=== PATIENT | male | born 1965 | race African-American/Black ===

== ENCOUNTER 2017-01-08 06:22 | Emergency (ER) | payer OTHER ==
[~2017-01-08] VITALS: Ht 182.9 cm; Wt 87.5 kg
[2017-01-08] MEDS ORDERED: TRUVADA 200 MG1 EAC1 ORAL (06:31)
[2017-01-08] MEDS ORDERED: LISINOPRIL5 MG ORAL (06:31)
--- NOTE | 2017-01-08 06:42 | Emergency Room Report ---
History of Present Illness General Chief Complaint: General Complaint Source: Patient Present Illness HPI Patient is a 51-year-old male presented after increased left-sided numbness weakness. Patient had the sudden onset of symptoms approximately 45 minutes prior to arrival. The patient reports having been taking Truvada for approximately 6 months. He denies prior history of diabetes. He reports having taken Viagra last night. He denies any changes in speech. Allergies: Coded Allergies: No Known Allergies (Unverified , 01/08/17) Patient History Past Medical History: see triage record Reviewed Nursing Documentation: PMH: Agreed, PSxH: Agreed Nursing Documentation-PMH Hx Hypertension: Yes Review of Systems All Other Systems: negative except mentioned in HPI Physical Exam Vital Signs Date Time Temp Pulse Resp B/P Pulse Ox O2 Delivery O2 Flow Rate FiO2 01/08/17 06:25 98.2 64 18 141/91 99 Room Air Sp02 EP Interpretation: reviewed, normal General Appearance: normal inspection, well appearing, no apparent distress, alert, GCS 15 Head: atraumatic ENT: normal ENT inspection, hearing grossly normal, normal voice Neck: normal inspection, full range of motion, supple, no bony tend Respiratory: normal inspection, lungs clear, normal breath sounds, no respiratory distress, no retraction, no wheezing Cardiovascular #1: regular rate, rhythm, no edema Gastrointestinal: normal inspection, normal bowel sounds, non tender, soft, no guarding, no hernia Genitourinary: no CVA tenderness Musculoskeletal: normal inspection, back normal, normal range of motion Neurologic: normal inspection, alert, oriented x3, responsive, shoe maker III-XII nml as tested, motor strength/tone normal, speech normal, other - slight passpointing with left upper extremity, oriented Psychiatric: normal inspection, judgement/insight normal, mood/affect normal Skin: normal inspection, normal color, no rash Medical Decision Making Diagnostic Impression: Primary Impression: Acute left-sided weakness Additional Impression: TIA (transient ischemic attack) ER Course Patient presented for left-sided numbness and weakness. Differential diagnosis included was not limited to CVA, hemorrhagic stroke, multiple sclerosis, hypoglycemia among others. Because of complexity of patient's case laboratory testing and imaging studies were ordered. CT of the head was ordered due to patient's acute onset neurologic symptoms. The patient did not appear to have any severe neurologic deficit requiring thrombolytic.The CT the head read by radiology showed no evidence of acute hemorrhage or stroke. The patient was noted to have adequate blood sugar. I laboratory testing showed minimal elevation of creatinine. Patient was given aspirin by mouth. The patient's niH Stroke score was 2. Patient was noted to have some passpointing with left upper extremity and numbness only.The patient was discussed with Dr. Rose who agreed to accept the patient in transfer.The patient appears stable for transfer at this time. Labs Test 01/08/17 07:14 White Blood Count 5.5 K/UL (4.8-10.8) Red Blood Count 6.09 M/UL (4.70-6.10) Hemoglobin 16.0 G/DL (14.2-18.0) Hematocrit 51.0 % (42.0-52.0) Mean Corpuscular Volume 84 FL (80-99) Mean Corpuscular Hemoglobin 26.2 PG (27.0-31.0) Mean Corpuscular Hemoglobin Concent 31.3 G/DL (32.0-36.0) Red Cell Distribution Width 14.7 % (11.6-14.8) Platelet Count 198 K/UL (150-450) Mean Platelet Volume 9.8 FL (6.5-10.1) Neutrophils (%) (Auto) % (45.0-75.0) Lymphocytes (%) (Auto) % (20.0-45.0) Monocytes (%) (Auto) % (1.0-10.0) Eosinophils (%) (Auto) % (0.0-3.0) Basophils (%) (Auto) % (0.0-2.0) Differential Total Cells Counted 100 Neutrophils % (Manual) 22 % (45-75) Lymphocytes % (Manual) 68 % (20-45) Monocytes % (Manual) 10 % (1-10) Eosinophils % (Manual) 0 % (0-3) Basophils % (Manual) 0 % (0-2) Band Neutrophils 0 % (0-8) Platelet Estimate Adequate Platelet Morphology Normal Hypochromasia 1+ Prothrombin Time 11.0 SEC (9.30-11.50) Prothromb Time International Ratio 1.1 (0.9-1.1) Activated Partial Thromboplast Time 27 SEC (23-33) Sodium Level 138 mEQ/L (135-145) Potassium Level 4.8 mEQ/L (3.4-4.9) Chloride Level 97 mEQ/L (98-107) Carbon Dioxide Level 27 mEQ/L (20-30) Anion Gap 14 (5-15) Blood Urea Nitrogen 13 mg/dL (7-23) Creatinine 1.4 mg/dL (0.7-1.2) Estimat Glomerular Filtration Rate > 60 mL/min (>60) Glucose Level 91 mg/dL (74-106) Calcium Level 9.3 mg/dL (8.6-10.2) Total Bilirubin 0.4 mg/dL (0.0-1.2) Aspartate Amino Transf (AST/SGOT) 29 U/L (5-40) Alanine Aminotransferase (ALT/SGPT) 24 U/L (3-41) Alkaline Phosphatase 38 U/L (40-129) Total Protein 7.9 g/dL (6.6-8.7) Albumin 4.5 g/dL (3.5-5.2) Globulin 3.4 g/dL Albumin/Globulin Ratio 1.3 (1.0-2.7) Triglycerides Level 102 mg/dL (< 150) Cholesterol Level 198 mg/dL (< 200) LDL Cholesterol 120 mg/dL (60-99) HDL Cholesterol 58 mg/dL (> 60) Cholesterol/HDL Ratio 3.4 (3.3-4.4) EKG Diagnostic Results Rate: normal - 57 Rhythm: NSR ST Segments: no acute changes Last Vital Signs Date Time Temp Pulse Resp B/P Pulse Ox O2 Delivery O2 Flow Rate FiO2 01/08/17 06:25 98.2 64 18 141/91 99 Room Air Status: unchanged [facility] Condition: Stable Satish Valenzuela Jan 08, 2017 06:42
[2017-01-08 07:10] VITALS: BP 137/93
[2017-01-08 07:33] LABS: MEAN CORPUSCULAR HEMOGLOBIN 26.2 PG (27.0-31.0); MEAN CORPUSCULAR HGB CONC 31.3 G/DL (32.0-36.0); MEAN CORPUSCULAR VOLUME 84 FL (80-99); MEAN PLATELET VOLUME 9.8 FL (6.5-10.1); PLATELET COUNT 198 K/UL (150-450); RED BLOOD COUNT 6.09 M/UL (4.70-6.10); RED CELL DISTRIBUTION WIDTH 14.7 % (11.6-14.8); WHITE BLOOD COUNT 5.5 K/UL (4.8-10.8)
[2017-01-08 07:43] LABS: INR 1.1 (0.9-1.1)
[2017-01-08 07:45] LABS: ALANINE AMINOTRANSFERASE 24 U/L (3-41); ALBUMIN/GLOBULIN RATIO 1.3 (1.0-2.7); ANION GAP 14 (5-15); ASPARTATE AMINO TRANSFERASE 29 U/L (5-40); CALCIUM 9.3 mg/dL (8.6-10.2); CARBON DIOXIDE 27 mEQ/L (20-30); CHLORIDE 97 mEQ/L (98-107); CHOLESTEROL 198 mg/dL (< 200); CHOLESTEROL/HDL RATIO 3.4 (3.3-4.4); CREATININE 1.4 mg/dL (0.7-1.2); GLOMERULAR FILTRATION RATE > 60 mL/min (>60); HEMOLYSIS 45; LDL CHOLESTEROL (CALC.) 120 mg/dL (60-99); POTASSIUM 4.8 mEQ/L (3.4-4.9); SODIUM 138 mEQ/L (135-145); TOTAL PROTEIN 7.9 g/dL (6.6-8.7)
[2017-01-08 08:18] LABS: BAND NEUTROPHILS % (MANUAL) 0 % (0-8); BASOPHILS % (MANUAL) 0 % (0-2); EOSINOPHILS % (MANUAL) 0 % (0-3); LYMPHOCYTES % (MANUAL) 68 % (20-45); NEUTROPHILS % (MANUAL) 22 % (45-75); PLATELET ESTIMATE ADEQUATE; PLATELET MORPHOLOGY NORMAL; TOTAL CELLS COUNTED 100
[2017-01-08 08:19] LABS: HYPOCHROMASIA 1+
--- NOTE | 2017-01-08 08:24 | Diagnostic Imaging Report ---
Indications: Left-sided weakness Technique: Continuous helical CT imaging of the brain was performed with automatic exposure control on a Siemens sensation [address] scanner. Axial and coronal images were reconstructed at 5 mm slice thickness and interval. CTDI volume(s): 70 mGy Total DLP: 1537 mGy-cm Findings: Comparison: None. Intracranial anatomy is unremarkable. No evidence of mass or hemorrhage, other attenuation abnormality, mass effect, midline shift, hydrocephalus or increased intracranial pressure. Bone window images are unremarkable. Polypoid soft tissue density left sphenoid sinus. Remainder visualized paranasal sinuses and mastoid air cells are clear. IMPRESSION: Left sphenoid sinus polyp versus retention cyst Otherwise negative noncontrast CT scan of the brain 3 Early/subtle acute abnormalities may be missed, however. If clinically indicated, MRI of the brain without and with gadolinium may be of benefit in further evaluation. Written preliminary report placed in PACS 01/08/[address] scanner at [facility] is accredited by the [employer] and the scans are performed using protocols designed to limit radiation exposure to as low as reasonably achievable to attain images of sufficient resolution adequate for diagnostic evaluation.
[2017-01-08 08:44] LABS: TROPONIN I < 0.30 ng/mL (<=0.30)
[2017-01-08 09:27] LABS: APPEARANCE,URINE CLEAR; KETONES,URINE NEGATIVE (NEGATIVE); LEUKOCYTE ESTERASE ,URINE NEGATIVE (NEGATIVE); NITRITE,URINE NEGATIVE (NEGATIVE); PH,URINE 6 (4.5-8.0); PROTEIN,URINE NEGATIVE (NEGATIVE); UROBILINOGEN,URINE NORMAL MG/DL (0.0-1.0)
[2017-01-08 10:33] VITALS: BP 130/57
--- NOTE | 2017-01-08 10:59 | Cardiology Report ---
APPROVED REPORT EKG Measurement Heart [id number] Sinus bradycardia Possible Inferior infarct, age undetermined Abnormal ECG
[2017-01-09 12:53] LABS: OTHERS PATHOLOGIST COMMENT
== END 2017-01-08 10:38 | disposition short-term general hospital (02) ==
LOC: EMR 07:34
DX: G45.9 Transient cerebral ischemic attack, unspecified (principal); R53.1 Weakness; I10 Essential (primary) hypertension
CPT/HCPCS: 36415; 70450; 80053; 80061; 80300; 81003; 82962; 84484; 85007; 85025; 85610; 85730; 93005; 99285

== ENCOUNTER 2018-09-14 10:01 | Emergency (ER) | payer OTHER ==
[~2018-09-14] VITALS: Ht 182.9 cm; Wt 86.2 kg
[~2018-09-14 10:01] MED LIST: LISINOPRIL5 MG ORAL; TRUVADA 200 MG1 EAC1 ORAL
[2018-09-14 10:52] LABS: ANION GAP 8 mmol/L (5-15); BLOOD UREA NITROGEN 16 mg/dL (7-18); CALCIUM 9.1 MG/DL (8.5-10.1); CARBON DIOXIDE 27 MMOL/L (21-32); CHLORIDE 105 MMOL/L (98-107); CREATININE 1.3 MG/DL (0.55-1.30); POTASSIUM 4.3 MMOL/L (3.5-5.1); SODIUM 140 MMOL/L (136-145)
[2018-09-14 10:57] LABS: ALANINE AMINOTRANSFERASE 31 U/L (12-78); ALBUMIN 3.7 G/DL (3.4-5.0); ALBUMIN/GLOBULIN RATIO 0.8 (1.0-2.7); ALKALINE PHOSPHATASE 45 U/L (46-116); ASPARTATE AMINO TRANSFERASE 22 U/L (15-37); BASOPHILS % (AUTO) 1.6 % (0.0-2.0); BILIRUBIN,TOTAL 0.3 MG/DL (0.2-1.0); HEMATOCRIT 45.6 % (42.0-52.0); HEMOGLOBIN 14.6 G/DL (14.2-18.0); LYMPHOCYTES % (AUTO) 42.2 % (20.0-45.0); MEAN CORPUSCULAR VOLUME 82 FL (80-99); MONOCYTES % (AUTO) 11.6 % (1.0-10.0); NEUTROPHILS % (AUTO) 43.5 % (45.0-75.0); PLATELET COUNT 210 K/UL (150-450); RED BLOOD COUNT 5.55 M/UL (4.70-6.10); RED CELL DISTRIBUTION WIDTH 14.3 % (11.6-14.8); WHITE BLOOD COUNT 4.2 K/UL (4.8-10.8)
[2018-09-14] MEDS ORDERED: Clindamycin 150mg cap ORAL STA (11:10)
--- NOTE | 2018-09-14 11:20 | Emergency Room Report ---
History of Present Illness General Chief Complaint: Skin Rash/Abscess Source: Patient, Medical Record Present Illness HPI Patient presents with swelling in his left neck. On Saturday he had upper respiratory infection with sore throat. He took over the counter medication which lead to relief. He had bloods checked on and rapid HIV was negative at that time. Also liver function tests were done which were normal. A CBC was not done. The lymph node is minimally tender at 2/10. The sore throat is better at this time. Denies medical problems, then agrees HTN an on HIV prevention. No rashes, NVD, dysuria, change in bowels, headache, anxiety. Allergies: Coded Allergies: No Known Allergies (Unverified , 01/08/17) Patient History Past Medical History: see triage record Social History: Reports: alcohol use; Denies: smoking Social History Narrative with sig other Reviewed Nursing Documentation: PMH: Agreed; PSxH: Agreed Nursing Documentation-PMH Past Medical History: No History, Except For Hx Hypertension: Yes Review of Systems All Other Systems: negative except mentioned in HPI Physical Exam Vital Signs Date Time Temp Pulse Resp B/P (MAP) Pulse Ox O2 Delivery O2 Flow Rate FiO2 09/14/18 10:04 98.1 72 18 134/92 98 Room Air Sp02 EP Interpretation: reviewed, normal General Appearance: well appearing, no apparent distress, GCS 15 Head: normocephalic Eyes: bilateral eye normal inspection, bilateral eye PERRL ENT: normal pharynx - no erythema, swelling or exudates, no angioedema, normal voice, moist mucus membranes Neck: full range of motion, supple Respiratory: lungs clear, normal breath sounds Cardiovascular #1: regular rate, rhythm Cardiovascular #2: 2+ radial (R) Gastrointestinal: normal inspection, normal bowel sounds, non tender, no mass, non-distended Musculoskeletal: back normal, gait/station normal, normal range of motion Neurologic: alert, oriented x3, grossly normal Psychiatric: mood/affect normal Skin: normal inspection, warm/dry, other - no erythema Lymphatic: adenopathy - L submandibular node, no fluctuance Medical Decision Making Diagnostic Impression: Primary Impression: Lymphadenitis ER Course Patient with URI last week and now enlarged node L below jaw. DDX: lympadenitis , reactive lymph node, viral syndrome, other cause of enlarged lymph node. There is no evidence of cellulitis or abscess. Labs (CBC and CMP ordered). Motrin given. Throat is improved. WBC slightly low. CMP normal. Discussed antibiotics and Clindamycin begun. Patient stable for outpatient observation and treatment. (Somewhat upset about questions about prior medications. Explained need to understand what he is taking.) Laboratory Tests Test 09/14/18 10:26 White Blood Count 4.2 K/UL (4.8-10.8) L Red Blood Count 5.55 M/UL (4.70-6.10) Hemoglobin 14.6 G/DL (14.2-18.0) Hematocrit 45.6 % (42.0-52.0) Mean Corpuscular Volume 82 FL (80-99) Mean Corpuscular Hemoglobin 26.3 PG (27.0-31.0) L Mean Corpuscular Hemoglobin Concent 32.0 G/DL (32.0-36.0) Red Cell Distribution Width 14.3 % (11.6-14.8) Platelet Count 210 K/UL (150-450) Mean Platelet Volume 8.7 FL (6.5-10.1) Neutrophils (%) (Auto) 43.5 % (45.0-75.0) L Lymphocytes (%) (Auto) 42.2 % (20.0-45.0) Monocytes (%) (Auto) 11.6 % (1.0-10.0) H Eosinophils (%) (Auto) 1.0 % (0.0-3.0) Basophils (%) (Auto) 1.6 % (0.0-2.0) Sodium Level 140 MMOL/L (136-145) Potassium Level 4.3 MMOL/L (3.5-5.1) Chloride Level 105 MMOL/L (98-107) Carbon Dioxide Level 27 MMOL/L (21-32) Anion Gap 8 mmol/L (5-15) Blood Urea Nitrogen 16 mg/dL (7-18) Creatinine 1.3 MG/DL (0.55-1.30) Estimate Glomerular Filtration Rate > 60 mL/min (>60) Glucose Level 100 MG/DL (74-106) Calcium Level 9.1 MG/DL (8.5-10.1) Total Bilirubin 0.3 MG/DL (0.2-1.0) Aspartate Amino Transferase (AST) 22 U/L (15-37) Alanine Aminotransferase (ALT) 31 U/L (12-78) Alkaline Phosphatase 45 U/L (46-116) L Total Protein 8.1 G/DL (6.4-8.2) Albumin 3.7 G/DL (3.4-5.0) Globulin 4.4 g/dL Albumin/Globulin Ratio 0.8 (1.0-2.7) L Last Vital Signs Date Time Temp Pulse Resp B/P (MAP) Pulse Ox O2 Delivery O2 Flow Rate FiO2 09/14/18 11:34 97.9 58 14 141/90 95 Room Air Status: improved Disposition: HOME, SELF-CARE Condition: Improved Scripts Clindamycin Hcl (CLINDAMYCIN HCL) 300 Mg Capsule 300 MG ORAL THREE TIMES A DAY, #21 CAP Prov: Jonathan Carranza MD 09/14/18 Referrals: NON PHYSICIAN (PCP) Jonathan Carranza MD Sep 14, 2018 11:20
[2018-09-14] MEDS ORDERED: CLINDAMYCIN HC300 MG ORAL (11:21)
[2018-09-14 11:33] VITALS: BP 141/90
[2018-09-14 11:34] VITALS: BP 141/90
== END 2018-09-14 11:36 | disposition home or self-care (01) ==
LOC: EMR 10:49
DX: I88.9 Nonspecific lymphadenitis, unspecified (principal); I10 Essential (primary) hypertension
CPT/HCPCS: 36415; 80053; 85025; 99283